=== PATIENT | male | born 1980 | race Two or more races ===

== ENCOUNTER 2024-04-17 12:45 | Emergency (ER) | payer SELFPAY | END 2024-04-17 15:00 | disposition home or self-care (01) | LOC: MW.ED 12:45 | DX: J02.0 Streptococcal pharyngitis (principal); F17.210 Nicotine dependence, cigarettes, uncomplicated; Z75.8 Other problems related to medical facilities and other health care | CPT/HCPCS: 87428-QW; 87651-QW; 99283 ==